=== PATIENT | male | born 1990 | race Caucasian/White ===

== ENCOUNTER 2017-02-18 10:21 | Emergency (ER) | payer OTHER ==
[2017-02-18] MEDS ORDERED: Sodium Chloride 0.9% 10 ML Syringe FLUSH PRN (10:43)
[2017-02-18] MEDS ORDERED: EPINEPHrine 1:1000 1 MG/ML SDV IM ONE ×2 (10:44→11:36)
[2017-02-18] MEDS ORDERED: Famotidine 20 MG/2 ML SDV IVPUSH ONE (10:44)
[2017-02-18] MEDS ORDERED: methylPREDNISolone Sodium Succinate 125 MG/2 ML SDV IVPUSH ONE (10:44)
[2017-02-18] MEDS ORDERED: diphenhydrAMINE 25 MG Cap PO ONE (10:45)
--- NOTE | 2017-02-18 11:35 | EDM.PDOC ---
ED HPI GENERAL MEDICAL PROBLEM - General Chief Complaint: Allergic Reaction Stated Complaint: ALLERGIC REACTION Time Seen by Provider: 02/18/17 10:32 Source of Information: Reports: Patient, Family, RN Notes Reviewed (Spouse) - History of Present Illness INITIAL COMMENTS - FREE TEXT/NARRATIVE: 26-year-old male comes in with history of intermittent hives that first started about 5 or 6 days ago. He was seen at the walk-in clinic this past Thursday 5 days ago, started on doxycycline for what may have been a facial infection on the left and also started on Medrol Dosepak for scattered hives primarily upper extremities. He states he did get better for 2 or 3 days and now the hives are back and actually worsening. He also now has swelling of his upper and lower mouth and feels like his distal tongue is also mildly swollen. The infected area of his left face has resolved. No fever chills, wheezing or difficulty breathing. Treatments MANAGER ANIMATION: Reports: Other (see below) Other Treatments MANAGER ANIMATION: Benadryl - Related Data Allergies Allergy/AdvReac Type Severity Reaction Status Date / Time enviromental Allergy Swelling Uncoded 02/18/17 10:28 Home Meds: Home Meds Doxycycline [Vibramycin] 100 mg PO BID 02/18/17 [History] methylPREDNISolone [Medrol] 1 tab PO ASDIRECTED 02/18/17 [History] Past Medical History - Past Health History Medical/Surgical History: Denies Medical/Surgical History Social & Family History - Tobacco Use Smoking Status *Q: Never Smoker Second Hand Smoke Exposure: No - Caffeine Use Caffeine Use: Reports: Energy Drinks, Soda - Recreational Drug Use Recreational Drug Use: No ED ROS ALLERGIC REACTION - Review of Systems Review Of Systems: See Below Constitutional: Denies: Fever, Chills HEENT: Reports: Other (Slight swelling of distal common swelling of the upper and lower mouth). Denies: Throat Pain Respiratory: Denies: Shortness of Breath, Wheezing, Cough Cardiovascular: Denies: Chest Pain GI/Abdominal: Reports: Nausea (My). Denies: Abdominal Pain, Vomiting Musculoskeletal: Reports: Joint Pain (Patient does have some stiffness and soreness of the MCP joints of both hands). Denies: Neck Pain Neurological: Denies: Numbness, Tingling ED EXAM GENERAL NO PERIP PULSE - Physical Exam Exam: See Below Exam Limited By: No Limitations General Appearance: Alert, Mild Distress Eye Exam: Bilateral Eye: PERRL Nose: Normal Inspection Throat/Mouth: Other (Pharynx is noninflamed, tongue not visibly swollen, he does have moderate swelling of his upper and lower lips anteriorly). No: Inflammation Head: Other (small hive R forehead) Neck: Supple, Full Range of Motion. No: Lymphadenopathy (L), Lymphadenopathy (R ) Respiratory/Chest: No Respiratory Distress, Lungs Clear, Normal Breath Sounds. No: Rhonchi, Wheezing Cardiovascular: Regular Rate, Rhythm Extremities: Redness (He does have some highs, erythema over the dorsum of both hands primarily MCP areas). No: Joint Swelling (There is no visible joint swelling, joints are nontender) Neurological: No Motor/Sensory Deficits Skin Exam: Other (His scattered hives of both upper extremities with some very mild central clearing noted with a few of those) Course - Vital Signs Last Recorded V/S: Last Vital Signs Temp 97.5 F 02/18/17 10:24 Pulse 74 02/18/17 10:24 Resp 18 02/18/17 10:24 BP 134/95 H 02/18/17 10:24 Pulse Ox 99 02/18/17 10:24 - Orders/Labs/Meds Orders: Active Orders 24 hr Category Date Time Status Peripheral IV Care [RC] . DIRECTED Care 02/18/17 10:43 Active Sodium Chloride 0.9% [Saline Flush] Med 02/18/17 10:43 Active 10 ml FLUSH ASDIRECTED PRN Peripheral IV Insertion Adult [OM.PC] Stat Oth 02/18/17 10:43 Ordered Medication Orders Sodium Chloride (Saline Flush) 10 ml FLUSH ASDIRECTED PRN PRN Reason: Keep Vein Open Last Admin: 02/18/17 11:02 Dose: 10 ml Meds: Medications Generic Name Dose Route Start Last Admin Trade Name Freq PRN Reason Stop Dose Admin Sodium Chloride 10 ml 02/18/17 10:43 02/18/17 11:02 Saline Flush FLUSH 10 ml ASDIRECTED PRN Administration Keep Vein Open Discontinued Medications Generic Name Dose Route Start Last Admin Trade Name Freq PRN Reason Stop Dose Admin Diphenhydramine HCl 25 mg 02/18/17 10:45 02/18/17 10:56 Benadryl PO 02/18/17 10:46 25 mg ONETIME ONE Administration Epinephrine HCl 0.3 mg 02/18/17 10:44 02/18/17 11:07 Adrenalin 1:1000 IM 02/18/17 10:45 0.3 mg ONETIME ONE Administration Epinephrine HCl 0.3 mg 02/18/17 11:36 02/18/17 11:56 Adrenalin 1:1000 IM 02/18/17 11:37 0.3 mg ONETIME ONE Administration Famotidine 20 mg 02/18/17 10:44 02/18/17 11:00 Pepcid IVPUSH 02/18/17 10:45 20 mg ONETIME ONE Administration Loratadine 10 mg 02/18/17 11:36 02/18/17 11:58 Claritin PO 02/18/17 11:37 10 mg ONETIME ONE Administration Methylprednisolone Sodium Succinate 125 mg 02/18/17 10:44 02/18/17 10:58 Solu-Medrol IVPUSH 02/18/17 10:45 125 mg ONETIME ONE Administration - Re-Assessments/Exams Free Text/Narrative Re-Assessment/Exam: 02/18/17 11:45. hives have faded mildly but still quite markedly present, mouth swelling is still about the same. No wheezing or difficulty breathing. Will repeat 0.3 mg epinephrine. Have also given Solu-Medrol IV. He did take 25 mg Benadryl by mouth prior to arrival. We have given further Benadryl 25 mg by mouth, Pepcid 20 mg IV along with the initial dose each of epinephrine. 12:30. Hives are gone he feels very mildly shaky from epinephrine and also drowsy from the Benadryl. Discharge instructions as documented Departure - Departure Time of Disposition: 12:36 Disposition: Home, Self-Care 01 Condition: fair Clinical Impression: Acute urticaria Angioedema Qualifiers: Encounter type: initial encounter Qualified Code(s): T78.3XXA - Angioneurotic edema, initial encounter - Discharge Information Instructions: Angioedema, [id number], Hives, [id number] Referrals: PCP,None [Primary Care Provider] - Forms: ED Department Discharge, Return to Work/School Form Additional Instructions: Rest, it is recommended you do not drive the remainder of today or at least until the sedating effects of the Benadryl has worn off, you have been given Claritin, Solu-Medrol which is a form of prednisone, IV Pepcid, 2 adrenaline injections while here in the ED. Continue Claritin 10 mg daily. Prednisone 40 mg twice daily for 3 days, you can take your first dose around 4 to 5:00 this afternoon and continue that twice daily for 3 days and than tapered dosage as per your prescription, followup clinic if not back to normal or at least not doing much better by Thursday. Work with your medical safety director to try to figure out what may be triggering these reactions at work as they do seem to be work related. Return to ED as needed - My Orders Last 24 Hours: My Active Orders 02/18/17 10:43 Peripheral IV Care [RC] . DIRECTED Sodium Chloride 0.9% [Saline Flush] 10 ml FLUSH ASDIRECTED PRN Peripheral IV Insertion Adult [OM.PC] Stat - Assessment/Plan Last 24 Hours: My Active Orders 02/18/17 10:43 Peripheral IV Care [RC] . DIRECTED Sodium Chloride 0.9% [Saline Flush] 10 ml FLUSH ASDIRECTED PRN Peripheral IV Insertion Adult [OM.PC] Stat
[2017-02-18] MEDS ORDERED: Loratadine 10 MG Tab PO ONE (11:36)
[2017-02-18 12:55] VITALS: BP 103/56
== END 2017-02-18 12:52 | disposition home or self-care (01) ==
LOC: JD.ED 10:21
DX: T78.3XXA Angioneurotic edema, initial encounter (principal)
CPT/HCPCS: 96372; 96374; 96375; 99283; A9270; J0171; J2930; J7050; 99284